=== PATIENT | female | born 1980 | race Caucasian/White ===

== ENCOUNTER → 2017-08-16 | Outpatient (CLI) | payer BC ==
[~2017-08-16] MED LIST: Motrin PO; Percocet 5/325,Endoc PO
== END | disposition home or self-care (01) ==
LOC: RAD 13:54
DX: R05 Cough (principal); R06.2 Wheezing
CPT/HCPCS: 71046

== ENCOUNTER → 2017-12-10 | Outpatient (CLI) | payer BC | END | disposition home or self-care (01) | LOC: CDC 10:21 | DX: Z01.810 Encounter for preprocedural cardiovascular examination (principal) | CPT/HCPCS: 93000 ==

== ENCOUNTER 2018-03-22 05:37 | Day surgery (SDC) | payer BC ==
[~2018-03-22] VITALS: Ht 162.6 cm; Wt 102.5 kg
[~2018-03-22 05:37] MED LIST changes: +ELAVIL50 MG PO; +FIORICET 50-301 EAC1 PO; +HYDROCHLOROTHIA25 MG PO; +LIPITOR20 MG PO; +LORTAB 10-3251 EACH PO; +MOTRIN800 MG PO; +NORMODYNE,TRAN200 MG PO; +PROMETHAZINE HC25 M1 PO; +VENLAFAXINE HCL75 M3 PO; +ZANAFLEX4 M1 PO; +ZYRTEC10 M2 PO
[2018-03-22 06:10] VITALS: BP 111/70
[2018-03-22] MEDS ORDERED: ENDOCET 5-3251 EACH PO (08:19)
[2018-03-22] MEDS ORDERED: IBUPROFEN800 MG PO (08:19)
[2018-03-22 11:53] VITALS: BP 110/81
[2018-03-22 12:42] VITALS: BP 108/67
[2018-03-22 13:34] VITALS: BP 137/78
== END 2018-03-22 13:42 | disposition home or self-care (01) ==
LOC: SDC 05:37
PROC: 0UT74ZZ Resection of Bilateral Fallopian Tubes, Percutaneous Endoscopic Approach (ICD-10-PCS; principal; 2018-03-22)
PROC: 0UPD7HZ Removal of Contraceptive Device from Uterus and Cervix, Via Natural or Artificial Opening (ICD-10-PCS; principal; 2018-03-22)
PROC: 0UT94ZZ Resection of Uterus, Percutaneous Endoscopic Approach (ICD-10-PCS; principal; 2018-03-22)
PROC: 0UT04ZZ Resection of Right Ovary, Percutaneous Endoscopic Approach (ICD-10-PCS; principal; 2018-03-22)
PROC: 0HBAXZZ Excision of Inguinal Skin, External Approach (ICD-10-PCS; principal; 2018-03-22)
DX: N80.0 Endometriosis of uterus (principal); N83.11 Corpus luteum cyst of right ovary; D23.9 Other benign neoplasm of skin, unspecified; Z97.5 Presence of (intrauterine) contraceptive device; K66.0 Peritoneal adhesions (postprocedural) (postinfection); I10 Essential (primary) hypertension; F17.200 Nicotine dependence, unspecified, uncomplicated
CPT/HCPCS: 88305; 88307; J0131; J0690; J1100; J1170; J1885; J2250; J2405; J2710; J3010; J7643; S0020